=== PATIENT | female | born 1980 ===

== ENCOUNTER 2016-11-21 17:18 | Emergency (ER) | payer OTHER ==
[2016-11-21 17:27] VITALS: RESP 18
[2016-11-21] MEDS ORDERED: Sodium Chloride 0.9% 1,000 ML IV ONE (18:37)
[2016-11-21] MEDS ORDERED: Iohexol 240 (50 ml) PO STA (18:37)
[2016-11-21 18:42] LABS: RBC URINE < 1 /hpf (0-3); URINE BACTERIA RARE (<OCC); URINE BILIRUBIN NEGATIVE (NEGATIVE); URINE BLOOD NEGATIVE (NEGATIVE); URINE COLOR Colorless (YELLOW); URINE GLUCOSE (UA) NORMAL (Normal); URINE KETONE NEGATIVE (NEGATIVE); URINE LEUKOCYTE ESTERASE NEG Leu/uL (Negative); URINE PROTEIN NEGATIVE (NEGATIVE); URINE UROBILINOGEN NORMAL mg/dL (0.2-1.0); WBC URINE < 1 /hpf (0-5)
[2016-11-21 19:20] LABS: BASO # 0.1 K/uL (0.0-0.2); BASO % 0.7 % (0.0-2.0); EOS # 0.1 K/uL (0.0-0.7); EOS % 1.3 % (0.0-4.0); HEMATOCRIT 37.8 % (34.0-47.0); LYMPH # 2.3 K/uL (1.0-4.3); LYMPH % 24.5 % (20.0-40.0); MEAN CELL VOLUME 87.4 fL (81.0-99.0); MEAN CORPUSCULAR HEMOGLOBIN 28.8 pg (27.0-31.0); MEAN PLATELET VOLUME 10.8 fL (7.2-11.7); MONO # 0.6 K/uL (0.0-0.8); MONO % 6.7 % (0.0-10.0); RED CELL DISTRIBUTION WIDTH 12.2 % (11.5-14.5); WHITE BLOOD COUNT 9.6 K/uL (4.8-10.8)
[2016-11-21 19:29] LABS: CHLORIDE 100 mmol/L (98-107); POTASSIUM 4.1 mmol/L (3.6-5.2); SODIUM 139 mmol/L (132-148)
[2016-11-21 19:31] LABS: BILIRUBIN,TOTAL 0.6 mg/dL (0.2-1.3); GFR AFRICAN-AMERICAN > 60
[2016-11-21 19:32] LABS: ALB/GLOB RATIO 1.6 (1.0-2.1); ALKALINE PHOSPHATASE 54 U/L (38-126); ALT/SGPT 19 U/L (9-52); AST/SGOT 19 U/L (14-36); BLOOD UREA NITROGEN 10 mg/dL (7-17); CALCIUM 9.5 mg/dl (8.6-10.4); CARBON DIOXIDE 27 mmol/L (22-30); GLUCOSE,RANDOM 92 mg/dL (65-105); TOTAL PROTEIN 7.7 g/dL (6.3-8.3)
[2016-11-21] MEDS ORDERED: Iohexol 240 (50 ml) ONE (19:37)
--- NOTE | 2016-11-21 19:57 | C.PDOC ---
History Of Present Illness Patient is a 36 y/o female that presents to the emergency department for evaluation of left sided abdominal pain associated with nausea for the last 2 weeks. Pt states her pain radiates from the LUQ to the LLQ, and is described as constant in nature. Pt states that pain is worse when sitting, and laying down, and is better with walking. Otherwise, denies any vomiting, diarrhea, constipation, change in bowel habits, urinary symptoms, back pain, fever, chills , or any other associated symptoms at this time. Time Seen by Provider: 11/21/16 18:33 Chief Complaint (Nursing): Abdominal Pain History Per: Patient History/Exam Limitations: no limitations Onset/Duration Of Symptoms: Days (2 weeks), Persistent Current Symptoms Are (Timing): Still Present Location Of Pain/Discomfort: LUQ, LLQ Radiation Of Pain To:: None Quality Of Discomfort: "Pain" Associated Symptoms: Nausea. denies: Fever, Chills, Vomiting, Diarrhea, Loss Of Appetite, Back Pain, Chest Pain, Constipation, Urinary Symptoms Exacerbating Factors: Supine, Other (sitting) Alleviating Factors: None Recent travel outside of the [place]: No Additional History Per: Patient Abnormal Vaginal Bleeding: No Past Medical History Reviewed: Historical Data, Nursing Documentation, Vital Signs Vital Signs: Last Vital Signs Temp 98.1 F 11/21/16 17:22 Pulse 90 11/21/16 17:22 Resp 18 11/21/16 17:22 BP 127/80 11/21/16 17:22 Pulse Ox 100 11/21/16 22:13 - Medical History PMH: Back Problems, Migraine Family History: States: No Known Family Hx - Social History Hx Tobacco Use: No Hx Alcohol Use: No Hx Substance Use: No - Immunization History Hx Tetanus Toxoid Vaccination: No Hx Influenza Vaccination: No Hx Pneumococcal Vaccination: No Review Of Systems Except As Marked, All Systems Reviewed And Found Negative. Constitutional: Negative for: Fever, Chills Gastrointestinal: Positive for: Nausea, Abdominal Pain. Negative for: Vomiting , Diarrhea, Constipation Genitourinary: Negative for: Dysuria, Frequency, Incontinence, Hematuria, Vaginal Discharge Musculoskeletal: Negative for: Back Pain Physical Exam - Physical Exam Appears: Non-toxic, No Acute Distress Skin: Normal Color, Warm, Dry Head: Atraumatic, Normacephalic Eye(s): bilateral: Normal Inspection, EOMI Neck: Normal ROM, Supple Chest: Symmetrical Cardiovascular: Rhythm Regular Respiratory: Normal Breath Sounds, No Rales, No Rhonchi, No Wheezing Gastrointestinal/Abdominal: Soft, Tenderness (LUQ, LLQ, mid abdomen), No Distention, Guarding, No Rebound Extremity: Normal ROM Neurological/Psych: Oriented x3, Normal Speech, Normal Cognition ED Course And Treatment - Laboratory Results Result Diagrams: 11/21/16 19:17 11/21/16 19:17 Lab Interpretation: Normal O2 Sat by Pulse Oximetry: 100 (on RA) Pulse Ox Interpretation: Normal - CT Scan/US CT ABDOMEN AND PELVIS Other Rad Studies (CT/US): Read By Radiologist, Radiology Report Reviewed CT/US Interpretation: EXAM: CT Abdomen and Pelvis With Intravenous Contrast. CLINICAL HISTORY: 36 years old, female; Pain; Abdominal pain; Generalized; Additional info: Abd pain. TECHNIQUE: Axial computed tomography images of the abdomen and pelvis with intravenous contrast. This CT. exam was performed using one or more of the following dose reduction techniques: automated. exposure control, adjustment of the mA and/or kV according to patient size, and/ or use of iterative. reconstruction technique. Coronal and sagittal reformatted images were created and reviewed. CONTRAST: 100 mL of [id number] administered intravenously. EXAM DATE/TIME: 11/21/2016 6:38 PM. COMPARISON: No relevant prior studies available. FINDINGS: LIMITATIONS: Exam is somewhat limited by mild streak/motion artifact. LOWER THORAX: No infiltrate seen in the lung bases. ABDOMEN: LIVER: No acute abnormality of the liver identified. GALLBLADDER AND BILE DUCTS: No CT evidence of acute cholecystitis. No evidence of. significant biliary ductal dilatation. PANCREAS: No CT evidence of acute pancreatitis. SPLEEN: No acute abnormality of the spleen identified. ADRENALS: No acute abnormality of the adrenal glands identified. KIDNEYS AND URETERS: No acute abnormality of the kidneys identified. No evidence of. significant hydrouereteronephrosis. STOMACH AND BOWEL: No acute abnormality of the stomach or duodenum identified. No. evidence of small bowel obstruction. No acute abnormality of the colon identified. APPENDIX: Normal appendix is not seen, however, there are no significant inflammatory changes. visualized in the expected location of the appendix to suggest appendicitis. Recommend clinical. correlation. PELVIS: BLADDER: Mild thickening of the bladder wall. REPRODUCTIVE: 2.5 cm cystic lesion with a thin, enhancing and collapsed soft tissue rim in the left. ovary. This has an appearance suggestive of a recently ruptured/involuting ovarian cyst, such as a. corpus luteal cyst. Followup pelvic ultrasound as clinically indicated. ABDOMEN and PELVIS: INTRAPERITONEAL SPACE: Small amount of free fluid in the cul-de-sac. This is most likely. physiologic in nature. No evidence of free air. BONES/JOINTS: No acute fractures or other acute bony abnormality noted. SOFT TISSUES: Small umbilical hernia, containing only fat. VASCULATURE: No evidence of abdominal aortic aneurysm. No evidence of periaortic. hemorrhage. LYMPH NODES: No evidence of diffuse lymphadenopathy. IMPRESSION: - Mild bladder wall thickening. This is a nonspecific finding, but can be seen with cystitis. Recommend clinical correlation. - Otherwise, no evidence of significant acute process. Appendix is not seen, however. - Small amount of free fluid in the cul -de-sac, most likely physiologic in nature. - Findings compatible with a small right involuting cystic lesion in the left ovary. - See above for remaining findings. Progress Note: Labs, abd & pelvis CT was ordered and reviewed. Patient was given IV fluids, Iohexol, and Zofran in the ER. Reevaluation Time: 22:17 Reassessment Condition: Improved (Patient remains comfortable.) Disposition - Disposition Referrals: Elizabet Ingram MD [Staff Provider] - Disposition: HOME/ ROUTINE Disposition Time: 22:17 Condition: STABLE Prescriptions: Naproxen [Naprosyn] 500 mg PO BID PRN #30 tablet PRN Reason: Pain, Severe (8-10) Instructions: Ovarian Cyst (ED) - Clinical Impression Clinical Impression: Ovarian cyst - Scribe Statement The provider has reviewed the documentation as recorded by the Caleb Ingram Provider Attestation: All medical record entries made by the Caleb were at my direction and personally dictated by me. I have reviewed the chart and agree that the record accurately reflects my personal performance of the history, physical exam, medical decision making, and the department course for this patient. I have also personally directed, reviewed, and agree with the discharge instructions and disposition.
[2016-11-21] MEDS ORDERED: Iodixanol 320 MG/ML 100 ML BOTTLE IV ONE (21:15)
--- NOTE | 2016-11-21 22:08 | CT ---
EXAM: CT Abdomen and Pelvis With Intravenous Contrast CLINICAL HISTORY: 36 years old, female; Pain; Abdominal pain; Generalized; Additional info: Abd pain TECHNIQUE: Axial computed tomography images of the abdomen and pelvis with intravenous contrast. This CT exam was performed using one or more of the following dose reduction techniques: automated exposure control, adjustment of the mA and/or kV according to patient size, and/or use of iterative reconstruction technique. Coronal and sagittal reformatted images were created and reviewed. CONTRAST: 100 mL of [id number] administered intravenously. EXAM DATE/TIME: 11/21/2016 6:38 PM COMPARISON: No relevant prior studies available. FINDINGS: LIMITATIONS: Exam is somewhat limited by mild streak/motion artifact. LOWER THORAX: No infiltrate seen in the lung bases. ABDOMEN: LIVER: No acute abnormality of the liver identified. GALLBLADDER AND BILE DUCTS: No CT evidence of acute cholecystitis. No evidence of significant biliary ductal dilatation. PANCREAS: No CT evidence of acute pancreatitis. SPLEEN: No acute abnormality of the spleen identified. ADRENALS: No acute abnormality of the adrenal glands identified. KIDNEYS AND URETERS: No acute abnormality of the kidneys identified. No evidence of significant hydrouereteronephrosis. STOMACH AND BOWEL: No acute abnormality of the stomach or duodenum identified. No evidence of small bowel obstruction. No acute abnormality of the colon identified. APPENDIX: Normal appendix is not seen, however, there are no significant inflammatory changes visualized in the expected location of the appendix to suggest appendicitis. Recommend clinical correlation. PELVIS: BLADDER: Mild thickening of the bladder wall. REPRODUCTIVE: 2.5 cm cystic lesion with a thin, enhancing and collapsed soft tissue rim in the left ovary. This has an appearance suggestive of a recently ruptured/involuting ovarian cyst, such as a corpus luteal cyst. Followup pelvic ultrasound as clinically indicated. ABDOMEN and PELVIS: INTRAPERITONEAL SPACE: Small amount of free fluid in the cul-de-sac. This is most likely physiologic in nature. No evidence of free air. BONES/JOINTS: No acute fractures or other acute bony abnormality noted. SOFT TISSUES: Small umbilical hernia, containing only fat. VASCULATURE: No evidence of abdominal aortic aneurysm. No evidence of periaortic hemorrhage. LYMPH NODES: No evidence of diffuse lymphadenopathy. IMPRESSION: - Mild bladder wall thickening. This is a nonspecific finding, but can be seen with cystitis. Recommend clinical correlation. - Otherwise, no evidence of significant acute process. Appendix is not seen, however. - Small amount of free fluid in the cul-de-sac, most likely physiologic in nature. - Findings compatible with a small right involuting cystic lesion in the left ovary. - See above for remaining findings.
[2016-11-21 22:31] VITALS: BP 106/64; PULSE 82; TEMP 98.6; O2SAT 97
== END 2016-11-21 22:32 | disposition home or self-care (01) ==
LOC: C.ER 17:18
DX: N83.209 Unspecified ovarian cyst, unspecified side (principal)
CPT/HCPCS: 74177; 80053; 81001; 83690; 84703; 85025; 96361; 96374; 99285; J2405; J7040; Q9966; Q9967

== ENCOUNTER 2017-06-29 06:43 | Day surgery (SDC) | payer OTHER ==
[2017-06-29] MEDS ORDERED: cefOXitin IV 1 gm in Dextrose 1 GM/50 ML BAG IVPB ONE (08:08)
[2017-06-29] MEDS ORDERED: Lidocaine 1% Inj (20ml) ONE (08:09)
[2017-06-29] MEDS ORDERED: Midazolam 2 MG/2 ML VIAL ONE (08:35)
[2017-06-29] MEDS ORDERED: Propofol 10 mg/ml Inj (20 ML) ONE (08:35)
[2017-06-29] MEDS ORDERED: Lidocaine Hydrochloride 5 ML INJ ONE (08:35)
[2017-06-29] MEDS ORDERED: Lactated Ringer's 1,000 ML IV ONE (08:40)
[2017-06-29 09:42] VITALS: O2SAT 100
[2017-06-29 12:46] VITALS: BP 114/68; PULSE 66; RESP 15; TEMP 97.6
--- NOTE | 2017-07-06 20:54 | OP ---
PROCEDURE DATE: PREOPERATIVE DIAGNOSIS: A 36-year-old 2, para 2 with cervical dysplasia. POSTOPERATIVE DIAGNOSIS: A 36-year-old 2, para 2 with cervical dysplasia. SURGEON: Cullen Maldonado MD. CLASSIFICATION AND TREATMENT DIRECTOR: None. TYPE OF ANESTHESIA: General. ANESTHESIA ADMINISTERED BY: Dr. Vega. PROCEDURE PERFORMED: Loop electrosurgical excision procedure. DESCRIPTION OF PROCEDURE: After informed consent was obtained, the patient was brought to the operating room, placed on the table where general anesthesia was given. She was prepped and draped in normal sterile fashion. Anterior lip of the cervix was grasped with a tenaculum. A 20 mL of lidocaine was given. After that, 2 mm electrode was used to do the LEEP. When the whole portion of the LEEP was done, then the ECC was done. Then was done. It was unremarkable. The patient tolerated the procedure well. . Cullen Maldonado MD
== END 2017-06-29 11:25 | disposition home or self-care (01) ==
LOC: C.SDS 06:43
PROVIDERS: ATTEND Obstetrics & Gynecology
DX: N87.0 Mild cervical dysplasia (principal)
CPT/HCPCS: 57522; 88305; 88307; J0694; J1885; J2250; J2405; J2704; J3010; J7120

== ENCOUNTER 2017-12-07 06:06 | Day surgery (SDC) | payer OTHER ==
[2017-12-07] MEDS ORDERED: Bupivacaine HCl 0.5% PF (30 ml) Inj ONE (07:24)
[2017-12-07] MEDS ORDERED: ceFAZolin IV 1 gm in Dextrose 0 GM/0 ML BAG IVPB ONE (07:44)
[2017-12-07] MEDS ORDERED: Midazolam 2 MG/2 ML VIAL ONE (07:49)
[2017-12-07] MEDS ORDERED: Propofol 10 mg/ml Inj (20 ML) ONE (07:49)
[2017-12-07] MEDS ORDERED: Neostigmine Methylsulfate 3mg/3ml Syringe IV ONE (08:55)
--- NOTE | 2017-12-07 09:08 | PCM.SURG1 ---
Surgeon's Initial Post Op Note - Surgeon's Notes Surgeon: dr alicea Logging Contractor: dr frank Type of Anesthesia: General LMA Anesthesia Administered By: dr mcguire Pre-Operative Diagnosis: 37 yr with pelvic pain/pelvic mass Operative Findings: se the op reort Post-Operative Diagnosis: same Operation Performed: diagnosic lap, right ovarian cystectomy Specimen/Specimens Removed: right ovary cyst Estimated Blood Loss: EBL {In ML}: 50 Blood Products Given: Autologous (Cell Saver) Drains Used: No Drains Post-Op Condition: Good Date of Surgery/Procedure: 12/07/17 Time of Surgery/Procedure: 09:30
[2017-12-07] MEDS: HYDROmorphone 0.5 mg/0.5 ml ISec IVP PRN ×2 (09:20→09:30)
[2017-12-07] MEDS ORDERED: HYDROmorphone 0.5 mg/0.5 ml ISec ONE (09:23)
[2017-12-07] MEDS ORDERED: Lactated Ringer's 1,000 ML IV SCH (09:30)
[2017-12-07 11:51] VITALS: RESP 16
[2017-12-07 14:19] VITALS: BP 113/63; PULSE 90; TEMP 97.9; O2SAT 98
--- NOTE | 2017-12-08 06:32 | OP ---
PROCEDURE DATE: 12/07/2017 PREOPERATIVE DIAGNOSIS: A 37-year-old 2, para 2 with pelvic pain and right ovarian mass. POSTOPERATIVE DIAGNOSIS: A 37-year-old 2, para 2 with pelvic pain and right ovarian mass. SURGEON: Cullen Maldonado MD WEB PRODUCTION ARTIST: Dr. Kumari, who was present throughout the surgical exposure. SURGERY PERFORMED: Diagnostic laparoscopy, laparoscopic right ovarian cystectomy, and lysis of adhesion. COMPLICATIONS: None. ESTIMATE BLOOD LOSS: 50 mL. TYPE OF ANESTHESIA: General anesthesia. ANESTHESIOLOGIST: Dr. Alvarado. DESCRIPTION OF PROCEDURE: After informed consent was obtained, the patient was brought to the operating room, placed on the table where general anesthesia was given. Once anesthesia was found to be sufficient, she was prepped and draped in normal sterile fashion. Examination revealed uterus to be 7-week size. No pelvic or adnexal masses. The anterior lip of cervix was grasped with a tenaculum. Gentle dilatation of the cervix was done. HUMI catheter was inserted for manipulation of the uterus. After that, attention was turned towards the patient's abdomen. The lower uterine segment incision was made to the umbilicus, 10 mL of Marcaine was given and lifted up. The skin was cut with a knife, and then the fascia was lifted up with the two Kochers. It was cut and tied up with 2-0 chromic, 2-0 Vicryl. After that, intra-abdominal placement with [place] was confirmed using gas. After that, a 5-mm port was placed on the left side. There was adhesion of omentum going to the pelvic wall and after that on the right side of window, a mass which was 4-5 cm. A decision was made to place two 5-mm ports on the left and the right side which was placed under direct visualization. After that, pelvic cytology was taken and it was sent for pathology. After that, adhesions were taken on the left side using LigaSure while lifting up on the other side. There was good hemostasis. No bleeding. Then, the decision was made to do right ovarian cystectomy. The left ovary looks normal. Then, the right ovary was lifted up. Then, it was cut and cauterized with the LigaSure. The cystectomy was performed. After that, the ovarian site was cauterized. Lot of irrigation was done and found to be hemostatic. Then after that, EndoCatch was placed at the site of the camera. After that then, the right ovarian cyst was placed in EndoCatch that was taken out. The left and right ovaries look normal. No bleeding. A lot of irrigation was done and found to be hemostatic, no bleeding. Then, the FloSeal was placed and hemostasis. After that, all the ports were removed. A 2-0 Vicryl was used for the fascia at the site of umbilicus, and the skin was closed using a 3-0 Monocryl. The patient tolerated the procedure well. Lap, sponge, and instrument counts were correct x2. The patient was given Bactrim DS and pain medications. To follow up with Dr. Maldonado in two weeks. Cullen Maldonado MD
== END 2017-12-07 14:10 | disposition home or self-care (01) ==
LOC: C.SDS 06:06
PROVIDERS: ATTEND Obstetrics & Gynecology
DX: N83.201 Unspecified ovarian cyst, right side (principal); N73.6 Female pelvic peritoneal adhesions (postinfective); Z98.890 Other specified postprocedural states; Z90.13 Acquired absence of bilateral breasts and nipples; Z90.49 Acquired absence of other specified parts of digestive tract; Z79.1 Long term (current) use of non-steroidal anti-inflammatories (NSAID)
CPT/HCPCS: 49329; 58662; 88104; 88304; 88305; C2615; J1170; J2250; J2704; J2710; J3010

== ENCOUNTER 2017-12-28 11:01 | Emergency (ER) | payer OTHER ==
[2017-12-28 11:21] VITALS: RESP 18; O2SAT 99
--- NOTE | 2017-12-28 12:13 | RAD ---
Date of service: 12/28/2017 HISTORY: cough COMPARISON: Chest radiograph dated 06/23/2015 TECHNIQUE: Chest PA and lateral FINDINGS: LUNGS: No active pulmonary disease. PLEURA: Small bilateral pleural effusions. No pneumothorax apparent. CARDIOVASCULAR: Normal. OSSEOUS STRUCTURES: No significant abnormalities. VISUALIZED UPPER ABDOMEN: Normal. OTHER FINDINGS: None. IMPRESSION: Small bilateral pleural effusions.
--- NOTE | 2017-12-28 12:17 | C.PDOC ---
History Of Present Illness 37 y/o female presents to ED with c/o cough for 3 days and discomfort described as tightness to right lower rib worse with deep inspiration. Patient denies fever, sob, nausea, vomiting or chest pain. Time Seen by Provider: 12/28/17 11:18 Chief Complaint (Nursing): Cough, Cold, Congestion History Per: Patient History/Exam Limitations: no limitations Onset/Duration Of Symptoms: Days Current Symptoms Are (Timing): Still Present Past Medical History Reviewed: Historical Data, Nursing Documentation, Vital Signs Vital Signs: Last Vital Signs Temp 99 F 12/28/17 12:32 Pulse 78 12/28/17 12:32 Resp 18 12/28/17 12:32 BP 122/82 12/28/17 12:32 Pulse Ox 99 12/28/17 12:33 - Medical History PMH: Back Problems Surgical History: Appendectomy Family History: States: No Known Family Hx - Social History Hx Tobacco Use: No Hx Alcohol Use: No Hx Substance Use: No - Immunization History Hx Tetanus Toxoid Vaccination: No Hx Influenza Vaccination: No Hx Pneumococcal Vaccination: No Review Of Systems Constitutional: Negative for: Fever, Chills Cardiovascular: Negative for: Chest Pain Respiratory: Positive for: Cough. Negative for: Shortness of Breath Gastrointestinal: Negative for: Nausea, Vomiting Skin: Negative for: Rash Physical Exam - Physical Exam Appears: Non-toxic, No Acute Distress Skin: Warm, Dry, No Rash Head: Atraumatic, Normacephalic Eye(s): bilateral: Normal Inspection Oral Mucosa: Moist Neck: Normal ROM, Supple Chest: Symmetrical Cardiovascular: Rhythm Regular, No Murmur, No JVD Respiratory: Normal Breath Sounds, No Accessory Muscle Use, No Rales, No Rhonchi , No Wheezing Gastrointestinal/Abdominal: Soft, No Tenderness, No Guarding, No Rebound Extremity: Bilateral: Atraumatic, Normal Color And Temperature, Normal ROM Neurological/Psych: Oriented x3, Normal Speech Gait: Steady ED Course And Treatment O2 Sat by Pulse Oximetry: 99 (RA) Pulse Ox Interpretation: Normal Medical Decision Making Medical Decision Making: Impression: cough and rib pain Plan: CXR Progress: Xray read by radiologist shows small bilateral pleural effusion, no pneumothorax. Patient remained afebrile and in no respiratory distress. Vital signs are stable. Discussed results with patient and plan for discharge home with RX. I recommend that she follow up with PMD in few days. Advise return to hospital if symptoms do not improve. Disposition Counseled Patient/Family Regarding: Diagnosis, Need For Followup - Disposition Referrals: Elizabet Ingram MD [Staff Provider] - Disposition: HOME/ ROUTINE Disposition Time: 12:17 Condition: STABLE Additional Instructions: It is important that you follow up with your doctor in 2-3 days Take medication daily Return to the emergency department at any time if symptoms persist or worsen. Prescriptions: predniSONE [predniSONE Tab] 40 mg PO DAILY #10 tab Instructions: Pleural Effusion (DC) Forms: [employer] (Ecuadorean) - POA Present On Arrival: None - Clinical Impression Clinical Impression: Small pleural effusion - PA / PROGRAM DIRECTOR / Resident Statement MD/DO has reviewed & agrees with the documentation as recorded. - Scribe Statement The provider has reviewed the documentation as recorded by the Katerinaibkinza Venegas All medical record entries made by the Katerinaibkinza were at my direction and personally dictated by me. I have reviewed the chart and agree that the record accurately reflects my personal performance of the history, physical exam, medical decision making, and the department course for this patient. I have also personally directed, reviewed, and agree with the discharge instructions and disposition.
[2017-12-28 12:33] VITALS: BP 122/82; PULSE 78; TEMP 99
== END 2017-12-28 12:32 | disposition home or self-care (01) ==
LOC: C.ER 11:01
DX: J90 Pleural effusion, not elsewhere classified (principal)